=== PATIENT | female | born 1935 | race Caucasian/White ===

== ENCOUNTER 2021-10-01 13:51 | Inpatient (IN) ==
[2021-10-01] MEDS ORDERED: Melatonin 3 MG TABLET PO PRN (18:27)
[2021-10-01] MEDS ORDERED: Ondansetron 4 MG/2 ML VIAL IVP PRN (18:27)
[2021-10-01] MEDS ORDERED: Naloxone 0.4 MG/ML INJ IVP PRN (18:27)
[2021-10-01] MEDS ORDERED: Acetaminophen 325 MG TABLET PO PRN (18:27)
[2021-10-01 19:57] LABS: Hematocrit 38.9 % (35.3-44.9); Mean Platelet Volume 10.9 fL (9.4-12.4)
[2021-10-01 19:59] LABS: Hemoglobin 12.1 g/dL (11.5-15.4); Mean Corpuscular HGB Conc 31.1 g/dL (31.6-35.5); Mean Corpuscular Volume 96.3 fL (83.0-100.0); Platelet Count 261 K/mcL (140-400); Red Blood Count 4.04 M/mcL (3.82-4.97); Red Cell Distribution Width 14.9 % (11.5-14.5)
[2021-10-01 20:05] LABS: White Blood Count 127.6 K/mcL (4.3-11.1)
[2021-10-01 20:14] LABS: Albumin 3.5 g/dL (3.5-5.7); Albumin/Globulin Ratio 1.1 (1.1-2.2); Bilirubin,Total 0.7 mg/dL (0.3-1.0); Calcium 9.2 mg/dL (8.6-10.3); Globulin 3.1 g/dL (2.4-3.5); Potassium 4.4 mEq/L (3.5-5.1); Total Protein 6.6 g/dL (6.4-8.9)
[2021-10-01 20:20] LABS: Lymphocytes # 113.6 K/mcL (0.6-4.6)
[2021-10-01 20:21] LABS: Platelet Estimate Normal (Normal)
[2021-10-01] MEDS ORDERED: Ipratropium/Albuterol Neb 3 ML IH PRN (20:44)
[2021-10-02] MEDS: 0.9 % Sodium Chloride 1,000 ML IVC SCH ×2 (00:18→15:30)
[2021-10-02] MEDS: Pantoprazole 40 MG in 0.9 % Sodium Chloride Mini Bag 100 ML IVC SCH ×3 (00:21→23:22)
[2021-10-02] MEDS: Piperacillin/Tazobactam 3.375 GM in 0.9 % Sodium Chloride Mini Bag 100 ML IVPB SCH ×3 (00:23→16:40)
[2021-10-02 00:53] LABS: Bacteria,Urine Few per hpf (None-Few); Bilirubin,Urine Small (Negative); Blood,Urine Moderate (Negative); Clarity,Urine Clear (Clear); Color,Urine Yellow (Yellow); Glucose,Urine (UA) Normal (Normal); Ketones,Urine Negative (Negative); Leukocyte Esterase,Urine Negative (Negative); Mucus,Urine Few per lpf (None-Few); Nitrite,Urine Negative (Negative); Protein,Urine 70 mg/dL (Neg-Trace); RBC,Urine 50-100 per hpf (0-3); Specific Gravity,Urine > 1.030 (1.010-1.025); Squamous Epithelial Cell,Urine Few per hpf (None-Few); Urobilinogen,Urine Normal (Normal); WBC,Urine 15-30 per hpf (0-3)
[2021-10-02 03:22] LABS: Hemoglobin 11.2 g/dL (11.5-15.4); Immature Granulocytes % 0.2 % (0-4); Red Cell Distribution Width 14.9 % (11.5-14.5); Segmented Neutrophils % 8.7 %
[2021-10-02 03:24] LABS: Hematocrit 37.4 % (35.3-44.9); Lymphocytes # 99.3 K/mcL (0.6-4.6); Lymphocytes % 89.8 %; Mean Corpuscular HGB Conc 29.9 g/dL (31.6-35.5); Mean Corpuscular Hemoglobin 29.2 pg (28.0-33.3); Mean Corpuscular Volume 97.7 fL (83.0-100.0); Mean Platelet Volume 10.8 fL (9.4-12.4); Monocytes # 1.4 K/mcL (0.0-1.3); Monocytes % 1.3 %; Platelet Count 236 K/mcL (140-400); Red Blood Count 3.83 M/mcL (3.82-4.97)
[2021-10-02 03:26] LABS: INR 1.3; Prothrombin Time 14.2 Seconds (9.4-12.1)
[2021-10-02 03:33] LABS: Neutrophils # 9.6 K/mcL (1.6-8.9); White Blood Count 110.6 K/mcL (4.3-11.1)
[2021-10-02 04:09] LABS: BUN/Creatinine Ratio 51 (6-26); Blood Urea Nitrogen 75 mg/dL (8-23); Calcium 8.9 mg/dL (8.6-10.3); Carbon Dioxide 39 mEq/L (23-29); Chloride 92 mEq/L (98-107); Glucose 120 mg/dL (70-105); Lipase < 3 Units/L (11-82); Magnesium 2.4 mg/dL (1.6-2.6); Osmolality,Calculated 317 (280-300); Potassium 4.1 mEq/L (3.5-5.1); Sodium 142 mEq/L (136-145); Thyroid Stimulating Hormone 3.968 mcIU/mL (0.340-5.600); eGFR For African Americans 41 (> 60); eGFR For Non-African Americans 34 (> 60)
[2021-10-02 04:12] LABS: Platelet Estimate Normal (Normal); Reactive Lymphocytes Present (Not Present); Smudge Cells Present (Not Present)
[2021-10-02 04:13] LABS: Anisocytosis 1+ (Not Present)
[2021-10-02] MEDS: *HR* HYDROmorphone (PF) 1 MG/ML SYRINGE IVP PRN ×2 (08:57→21:34)
[2021-10-02] MEDS ORDERED: carvediloL 25 MG TABLET PO SCH (10:31)
[2021-10-02] MEDS ORDERED: Chloraseptic Spray 177 ML BOTTLE MM PRN (11:14)
[2021-10-02] MEDS: Ipratropium/Albuterol Neb 3 ML IH SCH ×4 (11:32→21:21)
[2021-10-02] MEDS: Budesonide/Formoterol 160/4.5 1 PUFF INH IH SCH ×2 (11:32→21:22)
[2021-10-02] MEDS: carvediloL 25 MG TABLET PO SCH ×2 (13:38→21:09)
[2021-10-02] MEDS: Pantoprazole 40 MG VIAL IVP SCH (16:40)
[2021-10-03] MEDS: Piperacillin/Tazobactam 3.375 GM in 0.9 % Sodium Chloride Mini Bag 100 ML IVPB SCH ×3 (00:16→17:39)
[2021-10-03] MEDS: Ipratropium/Albuterol Neb 3 ML IH SCH ×6 (00:21→19:42)
[2021-10-03] MEDS: Pantoprazole 40 MG VIAL IVP SCH ×2 (06:20→17:40)
[2021-10-03 07:16] LABS: Calcium 8.1 mg/dL (8.6-10.3); Potassium 3.3 mEq/L (3.5-5.1)
[2021-10-03] MEDS: Budesonide/Formoterol 160/4.5 1 PUFF INH IH SCH ×2 (07:43→19:42)
[2021-10-03 07:55] LABS: Mean Corpuscular Volume 101.9 fL (83.0-100.0)
[2021-10-03 07:56] LABS: Hematocrit 32.1 % (35.3-44.9); Hemoglobin 9.5 g/dL (11.5-15.4); Mean Corpuscular HGB Conc 29.6 g/dL (31.6-35.5); Mean Corpuscular Hemoglobin 30.2 pg (28.0-33.3); Mean Platelet Volume 10.9 fL (9.4-12.4); Platelet Count 217 K/mcL (140-400); Red Blood Count 3.15 M/mcL (3.82-4.97); Red Cell Distribution Width 15.1 % (11.5-14.5)
[2021-10-03] MEDS: carvediloL 25 MG TABLET PO SCH ×2 (08:13→17:30)
[2021-10-03] MEDS: Aspirin Enteric Coated 81 MG Tablet PO SCH (08:19)
[2021-10-03] MEDS: Loratadine 10 MG TABLET PO SCH (08:19)
[2021-10-03] MEDS: amLODIPine 5 MG TABLET PO SCH (08:19)
[2021-10-03] MEDS: Cholecalciferol (D-3) 1,000 UNIT (25MCG) TABLET PO SCH (08:20)
[2021-10-03 08:29] LABS: White Blood Count 98.6 K/mcL (4.3-11.1)
[2021-10-03 08:43] LABS: Lymphocytes # 90.7 K/mcL (0.6-4.6); Neutrophils # 6.9 K/mcL (1.6-8.9)
[2021-10-03 08:44] LABS: Platelet Estimate Normal (Normal)
[2021-10-03] MEDS ORDERED: *HR* LORazepam 2 MG/ML VIAL IVP PRN (13:50)
[2021-10-04] MEDS: Ipratropium/Albuterol Neb 3 ML IH SCH ×7 (00:03→23:52)
[2021-10-04] MEDS: Piperacillin/Tazobactam 3.375 GM in 0.9 % Sodium Chloride Mini Bag 100 ML IVPB SCH ×3 (00:20→19:09)
[2021-10-04] MEDS: Pantoprazole 40 MG VIAL IVP SCH ×2 (04:49→20:21)
[2021-10-04] MEDS: Budesonide/Formoterol 160/4.5 1 PUFF INH IH SCH ×2 (07:55→20:28)
[2021-10-04 08:05] LABS: Mean Platelet Volume 10.6 fL (9.4-12.4)
[2021-10-04 08:06] LABS: Hematocrit 36.6 % (35.3-44.9); Hemoglobin 10.3 g/dL (11.5-15.4); Mean Corpuscular HGB Conc 28.1 g/dL (31.6-35.5); Mean Corpuscular Hemoglobin 29.3 pg (28.0-33.3); Platelet Count 245 K/mcL (140-400); Red Blood Count 3.52 M/mcL (3.82-4.97); Red Cell Distribution Width 15.5 % (11.5-14.5)
[2021-10-04 08:15] LABS: BUN/Creatinine Ratio 73 (6-26); Blood Urea Nitrogen 63 mg/dL (8-23); Carbon Dioxide 38 mEq/L (23-29); Chloride 109 mEq/L (98-107); Glucose 107 mg/dL (70-105); Osmolality,Calculated 336 (280-300); Potassium 3.1 mEq/L (3.5-5.1); Sodium 154 mEq/L (136-145); eGFR For African Americans > 60 (> 60); eGFR For Non-African Americans > 60 (> 60)
[2021-10-04] MEDS ORDERED: 0.9 % Sodium Chloride 1,000 ML IV ONE (08:20)
[2021-10-04 08:31] LABS: White Blood Count 109.3 K/mcL (4.3-11.1)
[2021-10-04 08:40] LABS: Lymphocytes # 98.4 K/mcL (0.6-4.6); Neutrophils # 10.9 K/mcL (1.6-8.9)
[2021-10-04 08:41] LABS: Platelet Estimate Normal (Normal); Smudge Cells Present (Not Present)
[2021-10-04] MEDS ORDERED: Saliva Stimulant 44.3ml BOTTLE PO PRN ×2 (09:10→18:07)
[2021-10-04] MEDS ORDERED: Lidocaine -MPF 1% 5 ML AMPUL INFILT ONE ×2 (10:09→18:07)
[2021-10-04] MEDS: 0.9 % Sodium Chloride 1,000 ML IVC SCH ×3 (11:21→19:09)
[2021-10-04 11:41] LABS: Albumin 3.1 g/dL (3.5-5.7); Magnesium 3.1 mg/dL (1.6-2.6); Phosphorous 1.4 mg/dL (2.7-4.5)
[2021-10-04] MEDS ORDERED: Potassium Phosphate 44 MEQ in 0.9 % Sodium Chloride 250 ML IVPB ONE ×2 (11:42→19:00)
[2021-10-04] MEDS ORDERED: D10% in Water 500 ML IVC PRN ×2 (12:04→18:07)
[2021-10-04] MEDS ORDERED: *HR* FentaNYL (PF) 100 MCG/2 ML VIAL ONE ×2 (12:36→15:24)
[2021-10-04] MEDS ORDERED: *HR* Propofol 200 MG/20 ML VIAL IVP ONE (12:37)
[2021-10-04] MEDS ORDERED: EPHEDrine 50 MG/ML VIAL ONE (12:37)
[2021-10-04] MEDS ORDERED: *HR* Labetalol 20 MG/4 ML SYRINGE IVP PRN ×2 (12:38→18:07)
[2021-10-04] MEDS ORDERED: Sugammadex Sodium 200 MG/2 ML VIAL IV ONE (12:40)
[2021-10-04] MEDS ORDERED: *HR* Phenylephrine 10 MG/ML VIAL ONE (13:09)
[2021-10-04] MEDS ORDERED: *HR* Etomidate 40 MG/20 ML VIAL IVP ONE (13:14)
[2021-10-04] MEDS ORDERED: Heparin 1,000 UNITS/500 mL 500 ML ONE (13:15)
[2021-10-04] MEDS ORDERED: Albumin Human 5% 25.0 GM/500 ML IV.SOLN ONE (13:16)
[2021-10-04] MEDS ORDERED: *HR* Vasopressin 20 UNIT/ML VIAL ONE (13:17)
[2021-10-04] MEDS ORDERED: Neostigmine Methylsulfate 3 MG/3 ML SYRINGE ONE (14:56)
[2021-10-04] MEDS ORDERED: Acetaminophen IV 500 MG/50 ML BAG IVPB ONE (16:39)
[2021-10-04] MEDS ORDERED: Acetaminophen IV 1,000 MG/100 ML BAG IVPB ONE (16:44)
[2021-10-04] MEDS ORDERED: Clinimix E 5%-15% SOLUTION 2,000 ML with MVI, adult with vitamin K 10 ML IVC SCH ×2 (17:00→18:07)
[2021-10-04] MEDS ORDERED: Ipratropium/Albuterol Neb 3 ML IH PRN (18:07)
[2021-10-04] MEDS ORDERED: Ondansetron 4 MG/2 ML VIAL IVP PRN (18:07)
[2021-10-04] MEDS ORDERED: Melatonin 3 MG TABLET PO PRN (18:07)
[2021-10-04] MEDS ORDERED: Naloxone 0.4 MG/ML INJ IVP PRN (18:07)
[2021-10-04] MEDS ORDERED: Chloraseptic Spray 177 ML BOTTLE MM PRN (18:07)
[2021-10-04] MEDS ORDERED: Acetaminophen 325 MG TABLET PO PRN (18:07)
[2021-10-04] MEDS: Aspirin Enteric Coated 81 MG Tablet PO SCH (19:10)
[2021-10-04] MEDS: amLODIPine 5 MG TABLET PO SCH (19:10)
[2021-10-04] MEDS: carvediloL 25 MG TABLET PO SCH ×2 (19:10→19:11)
[2021-10-04] MEDS: Loratadine 10 MG TABLET PO SCH (19:10)
[2021-10-04] MEDS: Cholecalciferol (D-3) 1,000 UNIT (25MCG) TABLET PO SCH (19:10)
[2021-10-04] MEDS: *HR* HYDROmorphone (PF) 1 MG/ML SYRINGE IVP PRN (19:43)
[2021-10-04] MEDS ORDERED: D5% in Water 1,000 ML IVC ONE (23:46)
[2021-10-05] MEDS: Piperacillin/Tazobactam 3.375 GM in 0.9 % Sodium Chloride Mini Bag 100 ML IVPB SCH ×4 (00:07→23:59)
[2021-10-05] MEDS: D5% in Water 1,000 ML IVC SCH ×2 (00:07→12:09)
[2021-10-05] MEDS: 0.9 % Sodium Chloride 1,000 ML IVC SCH ×3 (00:09→17:33)
[2021-10-05] MEDS: *HR* HYDROmorphone (PF) 1 MG/ML SYRINGE IVP PRN ×6 (00:15→23:37)
[2021-10-05] MEDS ORDERED: Dextrose 4 GM Chewable Tablets PO PRN ×2 (00:28)
[2021-10-05] MEDS ORDERED: D5% in Water 1,000 ML IVC PRN (00:28)
[2021-10-05] MEDS ORDERED: *HR* Dextrose 50 % in Water (Syg) 50 ML SYRINGE IVP PRN (00:28)
[2021-10-05 00:40] LABS: BUN/Creatinine Ratio 68 (6-26); Blood Urea Nitrogen 49 mg/dL (8-23); Calcium 8.3 mg/dL (8.6-10.3); Carbon Dioxide 32 mEq/L (23-29); Chloride 118 mEq/L (98-107); Glucose 214 mg/dL (70-105); Osmolality,Calculated 343 (280-300); Potassium 3.6 mEq/L (3.5-5.1); Sodium 157 mEq/L (136-145); eGFR For African Americans > 60 (> 60); eGFR For Non-African Americans > 60 (> 60)
[2021-10-05 01:48] LABS: Magnesium 2.5 mg/dL (1.6-2.6); Phosphorous 3.7 mg/dL (2.7-4.5)
[2021-10-05] MEDS: Insulin LISPRO 300 UNITS/3 ML VIAL SUBQ SCH ×6 (03:32→23:59)
[2021-10-05] MEDS: Ipratropium/Albuterol Neb 3 ML IH SCH ×6 (04:00→23:03)
[2021-10-05 04:06] LABS: Hematocrit 30.6 % (35.3-44.9); Immature Granulocytes % 0.2 % (0-4); Lymphocytes % 90.9 %; Mean Corpuscular HGB Conc 28.1 g/dL (31.6-35.5); Mean Corpuscular Hemoglobin 30.2 pg (28.0-33.3); Mean Corpuscular Volume 107.4 fL (83.0-100.0); Mean Platelet Volume 10.8 fL (9.4-12.4); Monocytes # 0.2 K/mcL (0.0-1.3); Monocytes % 0.2 %; Neutrophils # 8.4 K/mcL (1.6-8.9); Platelet Count 210 K/mcL (140-400); Red Blood Count 2.85 M/mcL (3.82-4.97); Red Cell Distribution Width 15.8 % (11.5-14.5); Segmented Neutrophils % 8.7 %
[2021-10-05 04:07] LABS: Hemoglobin 8.6 g/dL (11.5-15.4)
[2021-10-05 04:07] LABS: ABG Base Excess 6 mEq/L (-2 to 3); ABG HCO3 33 mEq/L (21-27); ABG Oxygen Saturation 95 % (95-98); ABG PCO2 54 mmHg (35-45); ABG PH 7.39 pH Units (7.32-7.45); ABG PO2 78 mmHg (85-104); ABG TCO2 34 mEq/L (20-26); Blood Gas Pressure Support 8 cm H2O
[2021-10-05 04:08] LABS: White Blood Count 96.8 K/mcL (4.3-11.1)
[2021-10-05 04:19] LABS: BUN/Creatinine Ratio 65 (6-26); Blood Urea Nitrogen 51 mg/dL (8-23); Calcium 8.4 mg/dL (8.6-10.3); Carbon Dioxide 35 mEq/L (23-29); Chloride 116 mEq/L (98-107); Glucose 293 mg/dL (70-105); Magnesium 2.5 mg/dL (1.6-2.6); Osmolality,Calculated 346 (280-300); Phosphorous 3.2 mg/dL (2.7-4.5); Potassium 3.5 mEq/L (3.5-5.1); Sodium 156 mEq/L (136-145); eGFR For African Americans > 60 (> 60); eGFR For Non-African Americans > 60 (> 60)
[2021-10-05 04:43] LABS: Platelet Estimate Normal (Normal); Smudge Cells Present (Not Present)
[2021-10-05] MEDS: Pantoprazole 40 MG VIAL IVP SCH ×2 (05:20→17:38)
[2021-10-05] MEDS: Budesonide/Formoterol 160/4.5 1 PUFF INH IH SCH ×2 (08:18→20:22)
[2021-10-05] MEDS: Aspirin Enteric Coated 81 MG Tablet PO SCH (08:51)
[2021-10-05] MEDS: Loratadine 10 MG TABLET PO SCH (08:51)
[2021-10-05] MEDS: carvediloL 25 MG TABLET PO SCH ×2 (08:51→17:30)
[2021-10-05] MEDS: amLODIPine 5 MG TABLET PO SCH (08:52)
[2021-10-05] MEDS: Cholecalciferol (D-3) 1,000 UNIT (25MCG) TABLET PO SCH (08:52)
[2021-10-05] MEDS ORDERED: Clinimix E 5%-15% SOLUTION 2,000 ML IVC SCH ×2 (17:00)
[2021-10-05] MEDS ORDERED: Acetaminophen IV 1,000 MG/100 ML BAG IVPB ONE (19:45)
[2021-10-05] MEDS ORDERED: D5% in Water 1,000 ML IVC SCH (23:00)
[2021-10-05 23:25] LABS: BUN/Creatinine Ratio 56 (6-26); Blood Urea Nitrogen 45 mg/dL (8-23); Calcium 8.3 mg/dL (8.6-10.3); Carbon Dioxide 35 mEq/L (23-29); Chloride 111 mEq/L (98-107); Glucose 165 mg/dL (70-105); Magnesium 2.4 mg/dL (1.6-2.6); Osmolality,Calculated 321 (280-300); Phosphorous 2.4 mg/dL (2.7-4.5); Potassium 3.9 mEq/L (3.5-5.1); Sodium 148 mEq/L (136-145); eGFR For African Americans > 60 (> 60); eGFR For Non-African Americans > 60 (> 60)
[2021-10-06] MEDS ORDERED: D5% in Water 1,000 ML IVC SCH (00:01)
[2021-10-06 00:13] LABS: ABG Base Excess 7 mEq/L (-2 to 3); ABG HCO3 37 mEq/L (21-27); ABG Oxygen Saturation 95 % (95-98); ABG PCO2 92 mmHg (35-45); ABG PH 7.22 pH Units (7.32-7.45); ABG PO2 93 mmHg (85-104); ABG TCO2 40 mEq/L (20-26)
[2021-10-06] MEDS: Albumin 25% 25gram/100mL 25 GM/100 ML IV.SOLN IVPB SCH ×4 (00:19→23:17)
[2021-10-06] MEDS: 0.9 % Sodium Chloride 1,000 ML IVC SCH ×2 (00:22→10:44)
[2021-10-06] MEDS: Insulin LISPRO 300 UNITS/3 ML VIAL SUBQ SCH ×5 (03:15→19:23)
[2021-10-06 03:38] LABS: Hematocrit 28.1 % (35.3-44.9); Hemoglobin 7.4 g/dL (11.5-15.4); Immature Granulocytes % 0.3 % (0-4); Lymphocytes % 91.6 %; Mean Corpuscular HGB Conc 26.3 g/dL (31.6-35.5); Mean Corpuscular Hemoglobin 28.8 pg (28.0-33.3); Mean Corpuscular Volume 109.3 fL (83.0-100.0); Mean Platelet Volume 10.9 fL (9.4-12.4); Monocytes # 0.6 K/mcL (0.0-1.3); Monocytes % 0.7 %; Platelet Count 169 K/mcL (140-400); Red Blood Count 2.57 M/mcL (3.82-4.97); Red Cell Distribution Width 16.3 % (11.5-14.5); Segmented Neutrophils % 7.4 %
[2021-10-06 03:46] LABS: BUN/Creatinine Ratio 57 (6-26); Blood Urea Nitrogen 52 mg/dL (8-23); Calcium 8.1 mg/dL (8.6-10.3); Carbon Dioxide 33 mEq/L (23-29); Chloride 111 mEq/L (98-107); Glucose 150 mg/dL (70-105); Magnesium 2.4 mg/dL (1.6-2.6); Osmolality,Calculated 325 (280-300); Phosphorous 2.6 mg/dL (2.7-4.5); Sodium 149 mEq/L (136-145); eGFR For African Americans > 60 (> 60); eGFR For Non-African Americans 58 (> 60)
[2021-10-06 03:58] LABS: Lymphocytes # 82.1 K/mcL (0.6-4.6); Neutrophils # 6.6 K/mcL (1.6-8.9); Platelet Estimate Normal (Normal); White Blood Count 89.6 K/mcL (4.3-11.1)
[2021-10-06] MEDS: Ipratropium/Albuterol Neb 3 ML IH SCH ×6 (04:41→23:33)
[2021-10-06] MEDS: Pantoprazole 40 MG VIAL IVP SCH ×2 (05:04→17:38)
[2021-10-06] MEDS: amLODIPine 5 MG TABLET PO SCH (07:44)
[2021-10-06] MEDS: carvediloL 25 MG TABLET PO SCH (07:44)
[2021-10-06] MEDS: Loratadine 10 MG TABLET PO SCH (07:44)
[2021-10-06] MEDS: Aspirin Enteric Coated 81 MG Tablet PO SCH (07:44)
[2021-10-06] MEDS: Cholecalciferol (D-3) 1,000 UNIT (25MCG) TABLET PO SCH (07:45)
[2021-10-06] MEDS: Piperacillin/Tazobactam 3.375 GM in 0.9 % Sodium Chloride Mini Bag 100 ML IVPB SCH ×3 (07:59→23:13)
[2021-10-06] MEDS: Budesonide/Formoterol 160/4.5 1 PUFF INH IH SCH ×2 (08:03→19:52)
[2021-10-06] MEDS: *HR* HYDROmorphone (PF) 1 MG/ML SYRINGE IVP PRN ×4 (09:26→22:03)
[2021-10-06] MEDS: Acetaminophen IV 1,000 MG/100 ML BAG IVPB SCH ×3 (10:28→23:04)
[2021-10-06 11:46] LABS: BUN/Creatinine Ratio 50 (6-26); Blood Urea Nitrogen 41 mg/dL (8-23); Calcium 7.6 mg/dL (8.6-10.3); Carbon Dioxide 28 mEq/L (23-29); Chloride 93 mEq/L (98-107); Glucose 1465 mg/dL (70-105); Osmolality,Calculated 346 (280-300); Potassium 5.5 mEq/L (3.5-5.1); Sodium 125 mEq/L (136-145); eGFR For African Americans > 60 (> 60); eGFR For Non-African Americans > 60 (> 60)
[2021-10-06] MEDS: Levothyroxine Sodium 100 MCG VIAL IVP SCH (16:02)
[2021-10-06] MEDS: *HR* Metoprolol 5 MG/5 ML VIAL IVP SCH ×3 (16:19→23:37)
[2021-10-06 16:29] LABS: BUN/Creatinine Ratio 65 (6-26); Blood Urea Nitrogen 46 mg/dL (8-23); Calcium 8.3 mg/dL (8.6-10.3); Carbon Dioxide 34 mEq/L (23-29); Chloride 109 mEq/L (98-107); Glucose 157 mg/dL (70-105); Osmolality,Calculated 317 (280-300); Potassium 3.8 mEq/L (3.5-5.1); Sodium 146 mEq/L (136-145); eGFR For African Americans > 60 (> 60); eGFR For Non-African Americans > 60 (> 60)
[2021-10-06] MEDS ORDERED: Clinimix E 5%-15% SOLUTION 2,000 ML IVC SCH ×2 (17:00)
[2021-10-07] MEDS: Insulin LISPRO 300 UNITS/3 ML VIAL SUBQ SCH ×4 (00:18→11:52)
[2021-10-07] MEDS: *HR* HYDROmorphone (PF) 1 MG/ML SYRINGE IVP PRN ×2 (02:03→06:47)
[2021-10-07] MEDS: Ipratropium/Albuterol Neb 3 ML IH SCH ×4 (03:32→15:15)
[2021-10-07 03:53] LABS: Hematocrit 22.1 % (35.3-44.9); Hemoglobin 6.2 g/dL (11.5-15.4); Immature Platelets 7.3 % (1.1-6.1); Mean Corpuscular HGB Conc 28.1 g/dL (31.6-35.5); Mean Corpuscular Volume 106.8 fL (83.0-100.0); Mean Platelet Volume 11.1 fL (9.4-12.4); Platelet Count 139 K/mcL (140-400); Red Blood Count 2.07 M/mcL (3.82-4.97); Red Cell Distribution Width 15.8 % (11.5-14.5)
[2021-10-07 03:56] LABS: BUN/Creatinine Ratio 75 (6-26); Blood Urea Nitrogen 42 mg/dL (8-23); Calcium 8.4 mg/dL (8.6-10.3); Carbon Dioxide 31 mEq/L (23-29); Chloride 110 mEq/L (98-107); Glucose 132 mg/dL (70-105); Magnesium 2.3 mg/dL (1.6-2.6); Osmolality,Calculated 314 (280-300); Phosphorous 1.8 mg/dL (2.7-4.5); Potassium 4.2 mEq/L (3.5-5.1); Sodium 146 mEq/L (136-145); eGFR For African Americans > 60 (> 60); eGFR For Non-African Americans > 60 (> 60)
[2021-10-07 04:09] LABS: White Blood Count 54.7 K/mcL (4.3-11.1)
[2021-10-07 04:37] LABS: Hypochromasia Present (Not Present); Monocytes # 1.1 K/mcL (0.0-1.3); Neutrophils # 6.6 K/mcL (1.6-8.9); Platelet Estimate Slight Decrease (Normal)
[2021-10-07] MEDS ORDERED: 0.9 % Sodium Chloride 250 ML ONE (04:51)
[2021-10-07] MEDS: *HR* Metoprolol 5 MG/5 ML VIAL IVP SCH ×2 (05:01→11:13)
[2021-10-07] MEDS: Pantoprazole 40 MG VIAL IVP SCH (05:02)
[2021-10-07] MEDS: Acetaminophen IV 1,000 MG/100 ML BAG IVPB SCH ×2 (05:03→11:13)
[2021-10-07] MEDS: Budesonide/Formoterol 160/4.5 1 PUFF INH IH SCH (07:09)
[2021-10-07] MEDS ORDERED: *HR* HYDROmorphone (PF) 1 MG/ML SYRINGE IVP PRN ×4 (07:42→15:40)
[2021-10-07] MEDS: Piperacillin/Tazobactam 3.375 GM in 0.9 % Sodium Chloride Mini Bag 100 ML IVPB SCH (08:23)
[2021-10-07] MEDS: Levothyroxine Sodium 100 MCG VIAL IVP SCH (08:24)
[2021-10-07] MEDS: Albumin 25% 25gram/100mL 25 GM/100 ML IV.SOLN IVPB SCH (10:00)
[2021-10-07 12:15] VITALS: TEMP 96.7
[2021-10-07 14:03] VITALS: BP 105/59
[2021-10-07 15:12] VITALS: PULSE 103
[2021-10-07] MEDS ORDERED: Clinimix E 5%-15% SOLUTION 2,000 ML with MVI, adult with vitamin K 10 ML IVC SCH (17:00)
[2021-10-07 17:43] VITALS: O2SAT 88
[2021-10-07] MEDS ORDERED: Albumin 25% 25gram/100mL 25 GM/100 ML IV.SOLN IVPB SCH (18:00)
== END 2021-10-07 15:50 | disposition expired | DRG 329 ==
LOC: 3BNU → SUATTDRO 18:10 → ICNU 10-04 17:59
PROVIDERS: ADMIT Hospitalist; ATTEND Student in an Organized Health Care Education/Training Program